=== PATIENT | male | born 1955 | race Two or more races ===

== ENCOUNTER 2024-03-04 08:56 | Outpatient (RCR) | payer MEDICARE, MEDICAID, SELFPAY ==
[2024-02-09 12:14] LABS: Basophils % (Auto) 1 % (0-2.5); Eosinophils # (Auto) 0.1 Thou/mm3 (0.0-0.5); Eosinophils % (Auto) 2 % (0-10); Hematocrit 32.3 % (41.0-53.0); Hemoglobin 11.4 g/dL (13.5-16.0); Immature Granulocytes % (Auto) 0 % (0-0); Immature Granulocytes Auto 0.01 Thou/mm3 (0.00-0.00); Lymphocytes # (Auto) 1.1 Thou/mm3 (1.0-4.8); Lymphocytes % (Auto) 31 % (10-50); Mean Corpuscular HGB Conc 35.3 g/dl (31.0-37.0); Mean Corpuscular Hemoglobin 30.8 pg (25.0-35.0); Mean Corpuscular Volume 87 fL (80-100); Monocytes # (Auto) 0.4 Thou/mm3 (0.0-0.8); Monocytes % (Auto) 12 % (0-12); Neutrophils % (Auto) 54 % (37-80); Nucleated Red Blood Cell % 0 /100 WBC (0); Platelet Count 202 Thou/mm3 (140-440); RDW Standard Deviation 46.7 fL (35.1-43.9); White Blood Count 3.6 Thou/mm3 (3.8-10.6)
[2024-02-09 12:27] LABS: Carcinoembryonic Antigen 2.1 ng/mL (0.0-5.0)
[2024-02-09 12:37] LABS: Alanine Aminotransferase < 7 U/L (10-49); Albumin, Serum 4.4 gm/dL (3.4-4.8); Albumin/Globulin Ratio 1.6 (1.2-2.2); Alkaline Phosphatase 62 U/L (46-116); Anion Gap 7 (7-16); Aspartate Amino Transferase 17 U/L (0-34); BUN/Creatinine Ratio 17 Ratio (12-20); Bilirubin,Total 1.6 mg/dL (0.3-1.2); Blood Urea Nitrogen 10 mg/dL (9-23); Calcium 9.6 mg/dL (8.3-10.6); Calcium (Corrected) 9.6 mg/dL (8.5-10.1); Chloride 107 mMol/L (98-107); Creatinine (Component) 0.6 mg/dL (0.6-1.3); Globulin 2.7 gm/dL (2.3-3.5); Glucose 143 mg/dL (74-106); Osmolality,Calculated 278 (275-295); Potassium 3.7 mMol/L (3.4-5.1); Sodium 139 mMol/L (136-145); Total Protein 7.1 gm/dL (5.7-8.2); eGFR > 60 See Note
[2024-02-20 16:33] LABS: Basophils % (Auto) 1 % (0-2.5); Eosinophils # (Auto) 0.1 Thou/mm3 (0.0-0.5); Eosinophils % (Auto) 1 % (0-10); Hematocrit 30.6 % (41.0-53.0); Immature Granulocytes % (Auto) 0 % (0-0); Immature Granulocytes Auto 0.02 Thou/mm3 (0.00-0.00); Lymphocytes # (Auto) 1.3 Thou/mm3 (1.0-4.8); Lymphocytes % (Auto) 23 % (10-50); Mean Corpuscular HGB Conc 35.9 g/dl (31.0-37.0); Mean Corpuscular Volume 86 fL (80-100); Monocytes # (Auto) 0.5 Thou/mm3 (0.0-0.8); Monocytes % (Auto) 9 % (0-12); Neutrophils # (Auto) 3.7 Thou/mm3 (1.8-7.7); Neutrophils % (Auto) 66 % (37-80); Nucleated Red Blood Cell % 0 /100 WBC (0); Platelet Count 177 Thou/mm3 (140-440); RDW Standard Deviation 48.5 fL (35.1-43.9); Red Blood Count 3.55 Miln/mm3 (4.50-5.90); White Blood Count 5.5 Thou/mm3 (3.8-10.6)
[2024-02-20 17:15] LABS: Carcinoembryonic Antigen 2.1 ng/mL (0.0-5.0)
[2024-02-20 17:38] LABS: Alanine Aminotransferase 10 U/L (10-49); Albumin/Globulin Ratio 1.5 (1.2-2.2); Alkaline Phosphatase 58 U/L (46-116); Anion Gap 8 (7-16); Aspartate Amino Transferase < 8 U/L (0-34); BUN/Creatinine Ratio 20 Ratio (12-20); Blood Urea Nitrogen 14 mg/dL (9-23); Calcium 9.2 mg/dL (8.3-10.6); Calcium (Corrected) 9.2 mg/dL (8.5-10.1); Chloride 104 mMol/L (98-107); Creatinine (Component) 0.7 mg/dL (0.6-1.3); Globulin 2.7 gm/dL (2.3-3.5); Glucose 219 mg/dL (74-106); Osmolality,Calculated 281 (275-295); Potassium 3.6 mMol/L (3.4-5.1); Sodium 137 mMol/L (136-145); Total Protein 6.7 gm/dL (5.7-8.2); eGFR > 60 See Note
== END 2024-03-09 23:59 | disposition home or self-care (01) ==
LOC: SCTC 08:56
PROVIDERS: PCP Family Medicine; Referring Provider Family Medicine; Visit Provider Internal Medicine Hematology & Oncology
DX: Z51.11 Encounter for antineoplastic chemotherapy (principal); C18.6 Malignant neoplasm of descending colon; E11.9 Type 2 diabetes mellitus without complications; K08.89 Other specified disorders of teeth and supporting structures; I95.9 Hypotension, unspecified; D64.9 Anemia, unspecified
CPT/HCPCS: 36591; 80053; 82378; 85025; 96360; 96361; 96366; 96367; 96409; 96411; 96416; 99212; A4216; J0640; J1642; J2405; J3490; J7030; J9190; G0463

== ENCOUNTER 2024-04-04 08:43 | Outpatient (RCR) | payer MEDICARE, MEDICAID, SELFPAY ==
[2024-03-12 16:15] LABS: Basophils % (Auto) 1 % (0-2.5); Eosinophils % (Auto) 1 % (0-10); Hematocrit 32.1 % (41.0-53.0); Hemoglobin 11.5 g/dL (13.5-16.0); Immature Granulocytes % (Auto) 0 % (0-0); Immature Granulocytes Auto 0.01 Thou/mm3 (0.00-0.00); Lymphocytes # (Auto) 1.1 Thou/mm3 (1.0-4.8); Lymphocytes % (Auto) 26 % (10-50); Mean Corpuscular HGB Conc 35.8 g/dl (31.0-37.0); Mean Corpuscular Hemoglobin 31.4 pg (25.0-35.0); Mean Corpuscular Volume 88 fL (80-100); Monocytes # (Auto) 0.4 Thou/mm3 (0.0-0.8); Monocytes % (Auto) 9 % (0-12); Neutrophils # (Auto) 2.7 Thou/mm3 (1.8-7.7); Neutrophils % (Auto) 64 % (37-80); Nucleated Red Blood Cell % 0 /100 WBC (0); Platelet Count 153 Thou/mm3 (140-440); RDW Standard Deviation 47.7 fL (35.1-43.9); Red Blood Count 3.66 Miln/mm3 (4.50-5.90); White Blood Count 4.3 Thou/mm3 (3.8-10.6)
[2024-03-12 16:42] LABS: Carcinoembryonic Antigen 2.2 ng/mL (0.0-5.0)
[2024-03-12 16:44] LABS: Folate > 24.00 ng/mL (>5.38); Vitamin B12 638 pg/mL (211-911)
[2024-03-12 16:51] LABS: Alanine Aminotransferase < 7 U/L (10-49); Albumin, Serum 4.1 gm/dL (3.4-4.8); Albumin/Globulin Ratio 1.6 (1.2-2.2); Alkaline Phosphatase 56 U/L (46-116); Anion Gap 8 (7-16); Aspartate Amino Transferase 16 U/L (0-34); BUN/Creatinine Ratio 30 Ratio (12-20); Bilirubin,Total 1.7 mg/dL (0.3-1.2); Blood Urea Nitrogen 18 mg/dL (9-23); Calcium 9.1 mg/dL (8.3-10.6); Calcium (Corrected) 9.1 mg/dL (8.5-10.1); Carbon Dioxide 25.9 mMol/L (20.0-31.0); Chloride 105 mMol/L (98-107); Creatinine (Component) 0.6 mg/dL (0.6-1.3); Globulin 2.5 gm/dL (2.3-3.5); Glucose 205 mg/dL (74-106); Osmolality,Calculated 285 (275-295); Potassium 3.8 mMol/L (3.4-5.1); Sodium 139 mMol/L (136-145); Total Protein 6.6 gm/dL (5.7-8.2); eGFR > 60 See Note
[2024-03-12 19:37] LABS: Ferritin 70 ng/mL (10.5-307.3); Total Iron Binding Capacity 282 mcg/dL (250-425)
[2024-03-12 19:46] LABS: Iron 144 mcg/dL (65-175); Percent Iron Saturation 51 % (20-55); Unsaturated Iron Binding 138 (225-295)
[2024-03-18 16:31] LABS: Basophils # (Auto) 0.1 Thou/mm3 (0.0-0.2); Basophils % (Auto) 1 % (0-2.5); Eosinophils # (Auto) 0.1 Thou/mm3 (0.0-0.5); Eosinophils % (Auto) 1 % (0-10); Hematocrit 32.6 % (41.0-53.0); Hemoglobin 11.8 g/dL (13.5-16.0); Immature Granulocytes % (Auto) 0 % (0-0); Immature Granulocytes Auto 0.02 Thou/mm3 (0.00-0.00); Lymphocytes # (Auto) 1.3 Thou/mm3 (1.0-4.8); Lymphocytes % (Auto) 22 % (10-50); Mean Corpuscular HGB Conc 36.2 g/dl (31.0-37.0); Mean Corpuscular Hemoglobin 31.4 pg (25.0-35.0); Mean Corpuscular Volume 87 fL (80-100); Monocytes # (Auto) 0.5 Thou/mm3 (0.0-0.8); Monocytes % (Auto) 8 % (0-12); Neutrophils % (Auto) 68 % (37-80); Nucleated Red Blood Cell % 0 /100 WBC (0); Platelet Count 164 Thou/mm3 (140-440); RDW Standard Deviation 46.9 fL (35.1-43.9); Red Blood Count 3.76 Miln/mm3 (4.50-5.90); White Blood Count 5.9 Thou/mm3 (3.8-10.6)
[2024-03-18 16:50] LABS: Alanine Aminotransferase 13 U/L (10-49); Albumin, Serum 4.4 gm/dL (3.4-4.8); Albumin/Globulin Ratio 1.8 (1.2-2.2); Alkaline Phosphatase 64 U/L (46-116); Anion Gap 8 (7-16); Aspartate Amino Transferase 15 U/L (0-34); BUN/Creatinine Ratio 20 Ratio (12-20); Bilirubin,Total 1.3 mg/dL (0.3-1.2); Blood Urea Nitrogen 18 mg/dL (9-23); Calcium 9.4 mg/dL (8.3-10.6); Calcium (Corrected) 9.4 mg/dL (8.5-10.1); Carbon Dioxide 27.1 mMol/L (20.0-31.0); Chloride 104 mMol/L (98-107); Creatinine (Component) 0.9 mg/dL (0.6-1.3); Globulin 2.5 gm/dL (2.3-3.5); Glucose 127 mg/dL (74-106); Osmolality,Calculated 281 (275-295); Potassium 3.9 mMol/L (3.4-5.1); Sodium 139 mMol/L (136-145); Total Protein 6.9 gm/dL (5.7-8.2); eGFR > 60 See Note
[2024-03-19 09:14] LABS: Carcinoembryonic Antigen 2.2 ng/mL (0.0-5.0)
[2024-04-01 13:03] LABS: Basophils % (Auto) 0 % (0-2.5); Eosinophils # (Auto) 0.1 Thou/mm3 (0.0-0.5); Eosinophils % (Auto) 1 % (0-10); Hematocrit 31.3 % (41.0-53.0); Hemoglobin 11.2 g/dL (13.5-16.0); Immature Granulocytes % (Auto) 0 % (0-0); Immature Granulocytes Auto 0.01 Thou/mm3 (0.00-0.00); Lymphocytes # (Auto) 1.1 Thou/mm3 (1.0-4.8); Lymphocytes % (Auto) 25 % (10-50); Mean Corpuscular HGB Conc 35.8 g/dl (31.0-37.0); Mean Corpuscular Hemoglobin 31.5 pg (25.0-35.0); Mean Corpuscular Volume 88 fL (80-100); Monocytes # (Auto) 0.4 Thou/mm3 (0.0-0.8); Monocytes % (Auto) 9 % (0-12); Neutrophils # (Auto) 2.9 Thou/mm3 (1.8-7.7); Neutrophils % (Auto) 64 % (37-80); Nucleated Red Blood Cell % 0 /100 WBC (0); Platelet Count 188 Thou/mm3 (140-440); RDW Standard Deviation 48.1 fL (35.1-43.9); Red Blood Count 3.56 Miln/mm3 (4.50-5.90); White Blood Count 4.5 Thou/mm3 (3.8-10.6)
[2024-04-01 13:18] LABS: Carcinoembryonic Antigen 2.2 ng/mL (0.0-5.0)
[2024-04-01 13:28] LABS: Alanine Aminotransferase < 7 U/L (10-49); Albumin, Serum 4.2 gm/dL (3.4-4.8); Albumin/Globulin Ratio 1.7 (1.2-2.2); Alkaline Phosphatase 64 U/L (46-116); Anion Gap 8 (7-16); Aspartate Amino Transferase 12 U/L (0-34); BUN/Creatinine Ratio 16 Ratio (12-20); Bilirubin,Total 1.3 mg/dL (0.3-1.2); Blood Urea Nitrogen 11 mg/dL (9-23); Calcium 9.1 mg/dL (8.3-10.6); Calcium (Corrected) 9.1 mg/dL (8.5-10.1); Carbon Dioxide 26.5 mMol/L (20.0-31.0); Chloride 105 mMol/L (98-107); Creatinine (Component) 0.7 mg/dL (0.6-1.3); Globulin 2.5 gm/dL (2.3-3.5); Glucose 221 mg/dL (74-106); Osmolality,Calculated 283 (275-295); Potassium 3.8 mMol/L (3.4-5.1); Sodium 139 mMol/L (136-145); Total Protein 6.7 gm/dL (5.7-8.2); eGFR > 60 See Note
== END 2024-04-09 23:59 | disposition home or self-care (01) ==
LOC: SCTC 08:43
PROVIDERS: PCP Family Medicine; Referring Provider Family Medicine; Visit Provider Internal Medicine Hematology & Oncology
DX: Z51.11 Encounter for antineoplastic chemotherapy (principal); C18.6 Malignant neoplasm of descending colon; K08.89 Other specified disorders of teeth and supporting structures; I95.9 Hypotension, unspecified; E11.9 Type 2 diabetes mellitus without complications; D64.9 Anemia, unspecified; Z79.84 Long term (current) use of oral hypoglycemic drugs
CPT/HCPCS: 36591; 80053; 82378; 82607; 82728; 82746; 83540; 83550; 85025; 96366; 96367; 96409; 96411; 96416; A4216; J0640; J1642; J2405; J9190

== ENCOUNTER 2024-05-06 13:54 | Outpatient (RCR) | payer MEDICARE, MEDICAID, SELFPAY ==
[2024-04-15 08:55] LABS: Basophils % (Auto) 1 % (0-2.5); Eosinophils # (Auto) 0.1 Thou/mm3 (0.0-0.5); Eosinophils % (Auto) 2 % (0-10); Hematocrit 28.9 % (41.0-53.0); Hemoglobin 10.5 g/dL (13.5-16.0); Immature Granulocytes % (Auto) 1 % (0-0); Immature Granulocytes Auto 0.02 Thou/mm3 (0.00-0.00); Lymphocytes # (Auto) 1.1 Thou/mm3 (1.0-4.8); Lymphocytes % (Auto) 28 % (10-50); Mean Corpuscular HGB Conc 36.3 g/dl (31.0-37.0); Mean Corpuscular Hemoglobin 31.3 pg (25.0-35.0); Mean Corpuscular Volume 86 fL (80-100); Monocytes # (Auto) 0.4 Thou/mm3 (0.0-0.8); Monocytes % (Auto) 10 % (0-12); Neutrophils # (Auto) 2.3 Thou/mm3 (1.8-7.7); Neutrophils % (Auto) 59 % (37-80); Nucleated Red Blood Cell % 0 /100 WBC (0); Platelet Count 182 Thou/mm3 (140-440); RDW Standard Deviation 47.9 fL (35.1-43.9); Red Blood Count 3.35 Miln/mm3 (4.50-5.90); White Blood Count 3.9 Thou/mm3 (3.8-10.6)
[2024-04-15 09:12] LABS: Carcinoembryonic Antigen 2.5 ng/mL (0.0-5.0)
[2024-04-15 09:20] LABS: Alanine Aminotransferase < 7 U/L (10-49); Albumin, Serum 4.2 gm/dL (3.4-4.8); Albumin/Globulin Ratio 1.5 (1.2-2.2); Alkaline Phosphatase 63 U/L (46-116); Anion Gap 9 (7-16); Aspartate Amino Transferase 13 U/L (0-34); BUN/Creatinine Ratio 18 Ratio (12-20); Bilirubin,Total 1.2 mg/dL (0.3-1.2); Blood Urea Nitrogen 14 mg/dL (9-23); Calcium 9.4 mg/dL (8.3-10.6); Calcium (Corrected) 9.4 mg/dL (8.5-10.1); Chloride 104 mMol/L (98-107); Creatinine (Component) 0.8 mg/dL (0.6-1.3); Globulin 2.8 gm/dL (2.3-3.5); Glucose 250 mg/dL (74-106); Osmolality,Calculated 284 (275-295); Sodium 138 mMol/L (136-145); eGFR > 60 See Note
[2024-04-29 16:22] LABS: Basophils % (Auto) 1 % (0-2.5); Eosinophils # (Auto) 0.1 Thou/mm3 (0.0-0.5); Eosinophils % (Auto) 1 % (0-10); Hematocrit 30.9 % (41.0-53.0); Hemoglobin 10.8 g/dL (13.5-16.0); Immature Granulocytes % (Auto) 0 % (0-0); Immature Granulocytes Auto 0.01 Thou/mm3 (0.00-0.00); Lymphocytes # (Auto) 1.3 Thou/mm3 (1.0-4.8); Lymphocytes % (Auto) 26 % (10-50); Mean Corpuscular Hemoglobin 31.1 pg (25.0-35.0); Mean Corpuscular Volume 89 fL (80-100); Monocytes # (Auto) 0.4 Thou/mm3 (0.0-0.8); Monocytes % (Auto) 8 % (0-12); Neutrophils # (Auto) 3.3 Thou/mm3 (1.8-7.7); Neutrophils % (Auto) 64 % (37-80); Nucleated Red Blood Cell % 0 /100 WBC (0); Platelet Count 184 Thou/mm3 (140-440); RDW Standard Deviation 50.4 fL (35.1-43.9); Red Blood Count 3.47 Miln/mm3 (4.50-5.90); White Blood Count 5.2 Thou/mm3 (3.8-10.6)
[2024-04-29 16:39] LABS: Alanine Aminotransferase < 7 U/L (10-49); Albumin, Serum 4.1 gm/dL (3.4-4.8); Albumin/Globulin Ratio 1.5 (1.2-2.2); Alkaline Phosphatase 60 U/L (46-116); Anion Gap 8 (7-16); Aspartate Amino Transferase 15 U/L (0-34); BUN/Creatinine Ratio 31 Ratio (12-20); Bilirubin,Total 1.1 mg/dL (0.3-1.2); Blood Urea Nitrogen 22 mg/dL (9-23); Calcium 9.3 mg/dL (8.3-10.6); Calcium (Corrected) 9.3 mg/dL (8.5-10.1); Carbon Dioxide 25.2 mMol/L (20.0-31.0); Chloride 109 mMol/L (98-107); Creatinine (Component) 0.7 mg/dL (0.6-1.3); Globulin 2.7 gm/dL (2.3-3.5); Glucose 233 mg/dL (74-106); Osmolality,Calculated 293 (275-295); Potassium 4.1 mMol/L (3.4-5.1); Sodium 142 mMol/L (136-145); Total Protein 6.8 gm/dL (5.7-8.2); eGFR > 60 See Note
[2024-04-29 16:41] LABS: Carcinoembryonic Antigen 2.6 ng/mL (0.0-5.0)
--- NOTE | 2024-05-06 15:01 | CTCFLWUP_ITS ---
Patient: MERRITT YA : 1955 Page 2 of 2 FOLLOW UP NOTE DATE OF SERVICE: 05/06/2024 NAME: MERRITT YA ACCOUNT: [id number] : 1955 AGE: 69 INTERVAL HISTORY: Patient is on adjuvant chemotherapy. Patient is doing well. He says he has gained about 8 to 10 rolan nds since starting chemotherapy. He has no side effects. Denies any nausea vomiting and neuropathy. He gets worried because of the elevated bilirubin. He is on Jardiance for his diabetes. 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 Patient had complete bowel obstruction prior to the surgery due to malignancy in the descending colon. Currently on adjuvant 5-FU and leucovorin chemotherapy (12/06/2023??) Hypotension currently on ProAmat ine. History of glaucoma. 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 Patient had complete bowel obstruction prior to the surgery due to malignancy in the descending colon. TREATMENT HISTORY: Care?Plan Start?Date Cycle Day Intent simplified?Bi?wkly?infusional?5?FU?and?Leucovorin 12/06/2023 1 14 Curative?(adjuvant) HISTORY OF PRESENT ILLNESS: Merritt Ya is a 69-year-old ENG speaking male with history of glaucoma, type 2 diabetes, c onstipation of 1 year duration as well as 50 pound weight loss has the following oncology history. 10/11/2023: Mr. Ya was seen in the [facility] emergency room becaus e of hypotension and anemia. EKG showed left bundle branch block. CEA 3.3. 10/11/2023: CT scan of the chest abdomen and pelvis with IV contrast was obtained 10/12/2023: Mr. Ya had a colonoscopy 10/14/2023: Mr. Ya had laparoscopic cholecystectomy, exploratory laparotomy and resection of the d escending colon and anastomosis between the transverse colon to the sigmoid colon and resection of th e small bowel and primary anastomosis. 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 Tobacco Use:?Smoked cigars socially off/on x 2 yrs - Quit 40yrs ago ETOH Use:?Quit Apr 2023- Drank 3- 24 oz beers/daily for 40yrs Drug?Note:?Denies Social History Note:?Lives with and children MEDICATIONS: 1. ferrous sulfate - 325 mg (65 mg iron) 1 tab Daily 2. Jardiance - 50 mg Daily 3. Na - 1 Daily 4. ProAmatine - 10 mg 0.5 tab Twice a Day Medications Last Reconciled by Rena Egan MA on 05/06/2024 ALLERGIES: No Known Allergies; No Known Drug Allergies REVIEW OF SYSTEMS: A complete 14-point review of systems was performed and is negative except as noted in interval histo ry. PHYSICAL EXAMINATION: VITAL SIGNS: Temperature?98.5, B/P?102/68, Oxygen?Saturation?100% Weight?126?lbs (Change?since? 5:?-2.2?lbs) PAIN: 0 - No pain ECOG Performance Status: 0 - Asymptomatic and fully active Alert and oriented x4 CHEST: Clear to auscultation. No wheezes or rales audible. CARDIAC: Rhythm regular, no murmurs or gallops present. ABDOMEN: Soft. No hepatomegaly. No splenomegaly. EXTREMITIES: No pedal edema or cyanosis. LABORATORY DATA: I have personally reviewed and interpreted each of the patient?s relevant lab tests, abnormal finding s are below: Date 04/29/24 ??WHITE?BLOOD?COUNT?(Thou/mm3) 5.2 ??RED?BLOOD?COUNT?(Miln/mm3) 3.47?L ??HEMOGLOBIN?(gm/dl) 10.8?L ??HEMATOCRIT?(%) 30.9?L ??PLATELET?COUNT?(Thou/mm3) 184 ??NEUTROPHILS?%,?AUTO?(%) 64 ??LYMPH?%,?AUTO?(%) 26 ??NEUTROPHILS,?AUTO?(Thou/mm3) 3.3 ASSESSMENT/PLAN: Stage IIa (T3 N0, M0), MMR proficient, well-differentiated adenocarcinoma of the descending colon wi th perineural invasion. Patient had complete bowel obstruction prior to the surgery due to malignanc y in the descending colon. Currently on adjuvant chemotherapy with 5-FU and leucovorin started on 09/09 and will cont for total 6 months Currently on cycle 5 PET/CT scan (11/23/2023) negative for met astasis. Cont therapy Cbc,cmp,cea Patient have completed 8 cycles and doing well Will continue chemotherapy for total 12 cycles as planned PET CT scan after that Reviewed labs and are stable #2 transaminitis Likely from Jardiance and chemotherapy Advised to discuss with primary care Patient will benefit from changing Jardiance to insulin and will have better control of glucose as we ll as well preventive transaminitis Continue chemotherapy for now with close monitoring of LFTs #3 Right premolar tooth pain a few days duration. Patient already completed dental workup and is now stable #4,Hypotension currently on ProAmatine. Echocardiogram done on 10/12/2023 showed normal ejecti on fraction of 55 to 60%. Pcp f/u #5 history of glaucoma. Follow with pcp #6 history of type 2 diabetes f/u with pcp. Advised to change treatment from Jardiance to insulin #7 anemia Likely from chemotherapy bone marrow suppression Will do nutritional work up including b12, folate, iron studies and all his stable Reviewed patient's labs CBC CMP CEA and trends along with old imaging CBC CMP PET CT scan to see any recurrence CEA RETURN TO CLINIC: 6 weeks BILLING AND COMPLIANCE: I reviewed external records from providers outside my specialty as summarized above. I spent a total of 50 minutes on this patient?s care on the day of their visit excluding time spent related to any bi lled procedures. This time includes time spent with the patient as well as time spent documenting in the medical record, reviewing patients records and tests, obtaining history, placing orders, communi cating with other healthcare professionals, counseling the patient, family or caregiver, and/or care coordination for the diagnoses above. Electronically Signed by: Dionte Chavez MD T: 2:58 PM CC: PCP: Referring: Shelley More This document was completed utilizing speech recognition software. Grammatical errors, random word in sertions, pronoun errors, and incomplete sentences are an occasional consequence of this system due t o software limitations, ambient noise, and hardware issues. Any formal questions or concerns about th e content, text or information contained within the body of this dictation should be directly address ed to the provider for clarification.
== END 2024-05-10 23:59 | disposition home or self-care (01) ==
LOC: SCTC 13:54
PROVIDERS: PCP Family Medicine; Referring Provider Family Medicine; Visit Provider Internal Medicine Hematology & Oncology
DX: Z51.11 Encounter for antineoplastic chemotherapy (principal); C18.6 Malignant neoplasm of descending colon; Z90.49 Acquired absence of other specified parts of digestive tract; R74.01 Elevation of levels of liver transaminase levels; I95.9 Hypotension, unspecified; E11.9 Type 2 diabetes mellitus without complications; D64.9 Anemia, unspecified
CPT/HCPCS: 36591; 80053; 82378; 85025; 96366; 96367; 96409; 96411; 96416; 99212; A4216; J0640; J1642; J2405; J7040; J7050; J9190; G0463

== ENCOUNTER 2024-06-27 10:08 | Outpatient (RCR) | payer MEDICARE, SELFPAY ==
[2024-06-10 09:40] LABS: Basophils % (Auto) 1 % (0-2.5); Eosinophils # (Auto) 0.1 Thou/mm3 (0.0-0.5); Eosinophils % (Auto) 1 % (0-10); Immature Granulocytes % (Auto) 0 % (0-0); Immature Granulocytes Auto 0.01 Thou/mm3 (0.00-0.00); Lymphocytes % (Auto) 20 % (10-50); Mean Corpuscular HGB Conc 35.5 g/dl (31.0-37.0); Mean Corpuscular Hemoglobin 31.9 pg (25.0-35.0); Mean Corpuscular Volume 90 fL (80-100); Monocytes # (Auto) 0.5 Thou/mm3 (0.0-0.8); Monocytes % (Auto) 9 % (0-12); Neutrophils # (Auto) 3.4 Thou/mm3 (1.8-7.7); Neutrophils % (Auto) 69 % (37-80); Nucleated Red Blood Cell % 0 /100 WBC (0); Platelet Count 155 Thou/mm3 (140-440); RDW Standard Deviation 47.2 fL (35.1-43.9); Red Blood Count 3.45 Miln/mm3 (4.50-5.90)
[2024-06-10 10:08] LABS: Alanine Aminotransferase 12 U/L (10-49); Albumin, Serum 4.3 gm/dL (3.4-4.8); Albumin/Globulin Ratio 1.7 (1.2-2.2); Alkaline Phosphatase 64 U/L (46-116); Anion Gap 11 (7-16); Aspartate Amino Transferase 17 U/L (0-34); BUN/Creatinine Ratio 27 Ratio (12-20); Bilirubin,Total 1.2 mg/dL (0.3-1.2); Blood Urea Nitrogen 19 mg/dL (9-23); Calcium 9.4 mg/dL (8.3-10.6); Calcium (Corrected) 9.4 mg/dL (8.5-10.1); Carbon Dioxide 23.3 mMol/L (20.0-31.0); Chloride 107 mMol/L (98-107); Creatinine (Component) 0.7 mg/dL (0.6-1.3); Globulin 2.6 gm/dL (2.3-3.5); Glucose 232 mg/dL (74-106); Osmolality,Calculated 290 (275-295); Potassium 3.7 mMol/L (3.4-5.1); Sodium 141 mMol/L (136-145); Total Protein 6.9 gm/dL (5.7-8.2); eGFR > 60 See Note
[2024-06-10 10:16] LABS: Carcinoembryonic Antigen 2.4 ng/mL (0.0-5.0)
[2024-06-24 09:29] LABS: Basophils % (Auto) 1 % (0-2.5); Eosinophils # (Auto) 0.1 Thou/mm3 (0.0-0.5); Eosinophils % (Auto) 1 % (0-10); Hemoglobin 11.5 g/dL (13.5-16.0); Immature Granulocytes % (Auto) 0 % (0-0); Immature Granulocytes Auto 0.01 Thou/mm3 (0.00-0.00); Lymphocytes # (Auto) 1.2 Thou/mm3 (1.0-4.8); Lymphocytes % (Auto) 32 % (10-50); Mean Corpuscular HGB Conc 34.8 g/dl (31.0-37.0); Mean Corpuscular Hemoglobin 31.2 pg (25.0-35.0); Mean Corpuscular Volume 89 fL (80-100); Monocytes # (Auto) 0.3 Thou/mm3 (0.0-0.8); Monocytes % (Auto) 9 % (0-12); Neutrophils # (Auto) 2.2 Thou/mm3 (1.8-7.7); Neutrophils % (Auto) 57 % (37-80); Nucleated Red Blood Cell % 0 /100 WBC (0); Platelet Count 163 Thou/mm3 (140-440); RDW Standard Deviation 47.9 fL (35.1-43.9); Red Blood Count 3.69 Miln/mm3 (4.50-5.90); White Blood Count 3.9 Thou/mm3 (3.8-10.6)
[2024-06-24 09:47] LABS: Alanine Aminotransferase 12 U/L (10-49); Albumin/Globulin Ratio 1.4 (1.2-2.2); Alkaline Phosphatase 64 U/L (46-116); Anion Gap 10 (7-16); Aspartate Amino Transferase 15 U/L (0-34); BUN/Creatinine Ratio 23 Ratio (12-20); Blood Urea Nitrogen 16 mg/dL (9-23); Calcium 9.5 mg/dL (8.3-10.6); Calcium (Corrected) 9.5 mg/dL (8.5-10.1); Carbon Dioxide 23.8 mMol/L (20.0-31.0); Chloride 109 mMol/L (98-107); Creatinine (Component) 0.7 mg/dL (0.6-1.3); Globulin 2.9 gm/dL (2.3-3.5); Glucose 250 mg/dL (74-106); Osmolality,Calculated 294 (275-295); Potassium 3.9 mMol/L (3.4-5.1); Sodium 143 mMol/L (136-145); Total Protein 6.9 gm/dL (5.7-8.2); eGFR > 60 See Note
[2024-06-24 09:52] LABS: Carcinoembryonic Antigen 2.4 ng/mL (0.0-5.0)
== END 2024-07-08 23:59 | disposition home or self-care (01) ==
LOC: SCTC 10:08
PROVIDERS: PCP Family Medicine; Referring Provider Family Medicine; Visit Provider Internal Medicine Hematology & Oncology
DX: Z51.11 Encounter for antineoplastic chemotherapy (principal); C18.6 Malignant neoplasm of descending colon; R74.01 Elevation of levels of liver transaminase levels; E11.9 Type 2 diabetes mellitus without complications; Z79.84 Long term (current) use of oral hypoglycemic drugs; Z90.49 Acquired absence of other specified parts of digestive tract
CPT/HCPCS: 36591; 80053; 82378; 85025; 96365; 96366; 96367; 96416; A4216; J0640; J1642; J2405; J7050; J9190

== ENCOUNTER → 2024-07-09 | Outpatient (CLI) | payer MEDICARE, SELFPAY ==
--- NOTE | 2024-07-09 12:30 | XR_ITS ---
EXAMINATION: PET/CT FUSION SKULL TO THIGH EXAM DATE AND TIME: July 09, 2024 at 1317 hours Comparison PET/CT scan November 23, 2023 CT brain scan November 02, 2023, CT chest abdomen pelvis October 11, 2023 INDICATIONS: Diagnosis malignant neoplasm of the colon restaging CTDI:vol (mGy) 3.70 DLP: (mGycm) 338 PROCEDURE: 16 mCi FDG was administered intravenously To allow for distribution and uptake of radiotracer, the patient was allowed to rest quietly in a shielded room. Imaging was performed on an integrated 16-slice PET/CT scanner, with scanning from the skull base to the mid thigh. Serum blood glucose at the time of the injection was measured 105 mg/dL. CT scanning was performed without oral or intravenous contrast material. FINDINGS: Head and Neck: There is no gayle hypermetabolism in the neck. The visualized portions of the brain are normal in appearance on CT. Chest: There is no gayle hypermetabolism in the chest. There are no pulmonary nodules. Abdomen and Pelvis: Interval 21 x 22 mm hypermetabolic focus in the right colon, axial image 151, coronal image 28, sagittal image 26. Musculoskeletal: Marrow uptake is within normal range. IMPRESSION: Interval 21 x 22 x 20 mm hypermetabolic focus in the right colon as above, recommend colonoscopy to exclude malignant neoplasm of the colon at this level
== END | disposition home or self-care (01) ==
PROVIDERS: Referring Provider Internal Medicine Hematology & Oncology; Visit Provider Internal Medicine Hematology & Oncology
DX: C18.6 Malignant neoplasm of descending colon (principal)
CPT/HCPCS: 78815; A9552

== ENCOUNTER → 2024-07-12 | Outpatient (CLI) | payer MEDICARE, SELFPAY ==
[2024-07-12 09:13] LABS: Misc Send Out* See Sep Rpt
== END | disposition home or self-care (01) ==
PROVIDERS: PCP Family Medicine; Referring Provider Internal Medicine Hematology & Oncology; Visit Provider Internal Medicine Hematology & Oncology
DX: C18.6 Malignant neoplasm of descending colon (principal)

== ENCOUNTER 2024-07-15 10:43 | Outpatient (RCR) | payer MEDICARE, SELFPAY ==
--- NOTE | 2024-07-15 13:19 | CTCFLWUP_ITS ---
Patient: MERRITT ANGLIN : 1955 Page 2 of 2 FOLLOW UP NOTE DATE OF SERVICE: 07/15/2024 NAME: MERRITT ANGLIN ACCOUNT: [id number] : 1955 AGE: 69 INTERVAL HISTORY: Patient completed chemotherapy . last treatment was on 06/25/2024 ONCOLOGY HISTORY: DIAGNOSIS: Malignant neoplasm of descending colon [ICD10] C18.6 Stage IIa (T3 N0, M0), MMR proficient, well-differentiated adenocarcinoma of the descending colon with perineural invasion. Patient had complete bowel obstruction prior to the surgery due to malignancy in the descending colon. Currently on adjuvant 5-FU and leucovorin chemotherapy (12/06/2023??) Hypotension currently on ProAmatine. History of glaucoma. 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 Patient had complete bowel obstruction prior to the surgery due to malignancy in the descending colon. TREATMENT HISTORY: Care?Plan Start?Date Cycle Day Intent simplified?Bi?wkly?infusional?5?FU?and?Leucovorin 12/06/2023 1 14 Curative?(adjuvant) last treatment was on 06/25/2024 HISTORY OF PRESENT ILLNESS: Merritt Anglin is a 69-year-old ENG speaking male with history of glaucoma, type 2 diabetes, constipation of 1 year duration as well as 50 pound weight loss has the following oncology history. 10/11/2023: Mr. Anglin was seen in the [facility] emergency room because of hypotension and anemia. EKG showed left bundle branch block. CEA 3.3. 10/11/2023: CT scan of the chest abdomen and pelvis with IV contrast was obtained 10/12/2023: Mr. Anglin had a colonoscopy 10/14/2023: Mr. Anglin had laparoscopic cholecystectomy, exploratory laparotomy and resection of the descending colon and anastomosis between the transverse colon to the sigmoid colon and resection of the small bowel and primary anastomosis. 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 Tobacco Use:?Smoked cigars socially off/on x 2 yrs - Quit 40yrs ago ETOH Use:?Quit Apr 2023- Drank 3- 24 oz beers/daily for 40yrs Drug?Note:?Denies Social History Note:?Lives with and children MEDICATIONS: 1. ferrous sulfate - 325 mg (65 mg iron) 1 tab Daily 2. Jardiance - 50 mg Daily 3. Na - 1 Daily 4. ProAmatine - 10 mg 0.5 tab Twice a Day Medications Last Reconciled by Rena Egan MA on 07/15/2024 ALLERGIES: No Known Allergies; No Known Drug Allergies REVIEW OF SYSTEMS: A complete 14-point review of systems was performed and is negative except as noted in interval history. PHYSICAL EXAMINATION: VITAL SIGNS: Temperature?96.5, B/P?107/70, Oxygen?Saturation?99% Weight?126?lbs (Change?since?06/27/24:?-6.2?lbs) PAIN: 0 - No pain Alert and oriented x4 CHEST: Clear to auscultation. No wheezes or rales audible. CARDIAC: Rhythm regular, no murmurs or gallops present. ABDOMEN: Soft. No hepatomegaly. No splenomegaly. EXTREMITIES: No pedal edema or cyanosis. LABORATORY DATA: I have personally reviewed and interpreted each of the patient?s relevant lab tests, abnormal findings are below: Date 06/10/24 06/24/24 ??WHITE?BLOOD?COUNT?(Thou/mm3) 5.0 3.9 ??RED?BLOOD?COUNT?(Miln/mm3) 3.45?L 3.69?L ??HEMOGLOBIN?(gm/dl) 11.0?L 11.5?L ??HEMATOCRIT?(%) 31.0?L 33.0?L ??PLATELET?COUNT?(Thou/mm3) 155 163 ??NEUTROPHILS?%,?AUTO?(%) 69 57 ??LYMPH?%,?AUTO?(%) 20 32 ??NEUTROPHILS,?AUTO?(Thou/mm3) 3.4 2.2 ??GLUCOSE,RANDOM?(mg/dL) ? 250?H ??BLOOD?UREA?NITROGEN?(mg/dL) ? 16 ??CREATININE?(mg/dL) ? 0.70 ??SODIUM?(mmol/L) ? 143 ??POTASSIUM?(mmol/L) ? 3.9 ??CHLORIDE?(mmol/L) ? 109?H ??CrCl?(CandG)?(ml/min) ? 87.77 ??AST/SGOT?(Unit/L) ? 15 ??ALT/SGPT?(Unit/L) ? 12 ??ALKALINE?PHOSPHATASE?(Unit/L) ? 64 ??BILIRUBIN,?TOTAL?(mg/dL) ? 1.0 ??PROTEIN?TOTAL?(gm/dl) ? 6.9 ??ALBUMIN,?SERUM?(gm/dl) ? 4.0 ??GLOBULIN?(gm/dl) ? 2.9 ??ALBUMIN/GLOBULIN?RATIO ? 1.4 ??CALCIUM,?SERUM?(mg/dL) ? 9.5 ??CALCIUM?SERUM?(CORRECTED)?(mg/dL) ? 9.5 ??CEA?(O*)?(ng/ml) ? 2.4 ASSESSMENT/PLAN: Stage IIa (T3 N0, M0), MMR proficient, well-differentiated adenocarcinoma of the descending colon with perineural invasion. Patient had complete bowel obstruction prior to the surgery due to malignancy in the descending colon. Patient completed 12 cycle sof treatment with 5 fu 07/09/2024 Pet scan is concerning for lesion in the colon . ORDERS: Order # Description [id number] Comprehensive Metabolic Panel - 12 + CBC with Auto Diff + [id number] CEA [id number] Follow Up 2 Months Referrel placed for colonoscopy radha ? RETURN TO CLINIC: 2 months BILLING AND COMPLIANCE: I reviewed external records from providers outside my specialty as summarized above. I spent a total of 50 minutes on this patient?s care on the day of their visit excluding time spent related to any billed procedures. This time includes time spent with the patient as well as time spent documenting in the medical record, reviewing patients records and tests, obtaining history, placing orders, communicating with other healthcare professionals, counseling the patient, family or caregiver, and/or care coordination for the diagnoses above. Electronically Signed by: Dionte Chavez MD T: 1:17 PM CC: PCP: Referring: Dionte Chavez This document was completed utilizing speech recognition software. Grammatical errors, random word insertions, pronoun errors, and incomplete sentences are an occasional consequence of this system due to software limitations, ambient noise, and hardware issues. Any formal questions or concerns about the content, text or information contained within the body of this dictation should be directly addressed to the provider for clarification.
== END 2024-08-07 23:59 | disposition home or self-care (01) ==
LOC: SCTC 10:43
PROVIDERS: PCP Family Medicine; Referring Provider Internal Medicine Hematology & Oncology; Visit Provider Internal Medicine Hematology & Oncology
DX: C18.6 Malignant neoplasm of descending colon (principal); K63.89 Other specified diseases of intestine; Z92.21 Personal history of antineoplastic chemotherapy
CPT/HCPCS: 99212; G0463

== ENCOUNTER 2024-09-16 10:13 | Outpatient (RCR) | payer MEDICARE, SELFPAY ==
[2024-09-13 11:46] LABS: Basophils # (Auto) 0.1 Thou/mm3 (0.0-0.2); Basophils % (Auto) 2 % (0-2.5); Eosinophils # (Auto) 0.1 Thou/mm3 (0.0-0.5); Eosinophils % (Auto) 2 % (0-10); Hematocrit 35.7 % (41.0-53.0); Hemoglobin 12.8 g/dL (13.5-16.0); Immature Granulocytes % (Auto) 0 % (0-0); Immature Granulocytes Auto 0.01 Thou/mm3 (0.00-0.00); Lymphocytes # (Auto) 1.2 Thou/mm3 (1.0-4.8); Lymphocytes % (Auto) 28 % (10-50); Mean Corpuscular HGB Conc 35.9 g/dl (31.0-37.0); Mean Corpuscular Hemoglobin 31.3 pg (25.0-35.0); Mean Corpuscular Volume 87 fL (80-100); Monocytes # (Auto) 0.4 Thou/mm3 (0.0-0.8); Monocytes % (Auto) 8 % (0-12); Neutrophils # (Auto) 2.6 Thou/mm3 (1.8-7.7); Neutrophils % (Auto) 60 % (37-80); Nucleated Red Blood Cell % 0 /100 WBC (0); Platelet Count 173 Thou/mm3 (140-440); RDW Standard Deviation 42.7 fL (35.1-43.9); Red Blood Count 4.09 Miln/mm3 (4.50-5.90); White Blood Count 4.4 Thou/mm3 (3.8-10.6)
[2024-09-13 12:03] LABS: Alanine Aminotransferase 9 U/L (10-49); Albumin, Serum 4.2 gm/dL (3.4-4.8); Albumin/Globulin Ratio 1.6 (1.2-2.2); Alkaline Phosphatase 80 U/L (46-116); Anion Gap 11 (7-16); Aspartate Amino Transferase 17 U/L (0-34); BUN/Creatinine Ratio 14 Ratio (12-20); Blood Urea Nitrogen 11 mg/dL (9-23); Calcium 9.5 mg/dL (8.3-10.6); Calcium (Corrected) 9.5 mg/dL (8.5-10.1); Carbon Dioxide 25.6 mMol/L (20.0-31.0); Chloride 103 mMol/L (98-107); Creatinine (Component) 0.8 mg/dL (0.6-1.3); Globulin 2.6 gm/dL (2.3-3.5); Glucose 183 mg/dL (74-106); Osmolality,Calculated 283 (275-295); Potassium 3.8 mMol/L (3.4-5.1); Sodium 140 mMol/L (136-145); Total Protein 6.8 gm/dL (5.7-8.2); eGFR > 60 See Note
[2024-09-13 12:06] LABS: Carcinoembryonic Antigen 2.2 ng/mL (0.0-5.0)
--- NOTE | 2024-09-22 22:29 | CTCFLWUP_ITS ---
Patient: MERRITT YA : 1955 Page 6 of 8 FOLLOW UP NOTE DATE OF SERVICE: 09/16/2024 NAME: MERRITT YA ACCOUNT: [id number] : 1955 AGE: 69 INTERVAL HISTORY: Subjective: Chief Complaint Follow-up for colon cancer treatment and recent tests History of Present Illness Mr. Felton Hernandez, a cancer survivor, presents for follow-up after completing cancer treatment on July 02, 2024. The patient is currently in the recovery phase, which is expected to last another 3 months. The patient's heart rate is reported to be slightly elevated, which may indicate dehydration. There are no specific complaints mentioned, but the patient is undergoing close monitoring due to his cancer history. A recent PET scan in July revealed a small area of hypermetabolic activity, prompting a scheduled colonoscopy for further evaluation. The patient's hemoglobin level is noted to be low at 12.8. Mr. Ya's blood pressure may increase as he gains weight, suggesting recent weight gain. His overall health status appears to be improving since completing cancer treatment, with a focus now on prevention and lifestyle modifications. The patient is advised to make dietary changes, including increasing vegetable intake and avoiding processed sweets. Objective: Vital Signs - Heart Rate: Elevated (exact value not provided) - Hemoglobin: 12.8 (units not specified) Laboratory, Imaging, and Diagnostic Test Results - Colon cancer test (08/04/2024): Negative for cancer - PET scan (July 2024): Small area of hypermetabolic activity detected - Hemoglobin: 12.8 g/dL (low) ONCOLOGY HISTORY:?[facility] Hx? 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 Patient had complete bowel obstruction prior to the surgery due to malignancy in the descending colon. Currently on adjuvant 5-FU and leucovorin chemotherapy (12/06/2023??) Hypotension currently on ProAmatine. History of glaucoma. 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 Patient had complete bowel obstruction prior to the surgery due to malignancy in the descending colon. TREATMENT HISTORY: Care?Plan Start?Date Cycle Day Intent simplified?Bi?wkly?infusional?5?FU?and?Leucovorin 12/06/2023 1 14 Curative?(adjuvant) Patient completed chemotherapy . last treatment was on 06/25/2024 HISTORY OF PRESENT ILLNESS: Merritt Ya is a 69-year-old ENG speaking male with history of glaucoma, type 2 diabetes, constipation of 1 year duration as well as 50 pound weight loss has the following oncology history. 10/11/2023: Mr. Ya was seen in the [facility] emergency room because of hypotension and anemia. EKG showed left bundle branch block. CEA 3.3. 10/11/2023: CT scan of the chest abdomen and pelvis with IV contrast was obtained 10/12/2023: Mr. Ya had a colonoscopy 10/14/2023: Mr. Ya had laparoscopic cholecystectomy, exploratory laparotomy and resection of the descending colon and anastomosis between the transverse colon to the sigmoid colon and resection of the small bowel and primary anastomosis. 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 Tobacco Use:?Smoked cigars socially off/on x 2 yrs - Quit 40yrs ago ETOH Use:?Quit Apr 2023- Drank 3- 24 oz beers/daily for 40yrs Drug?Note:?Denies Social History Note:?Lives with and children MEDICATIONS: 1. ferrous sulfate - 325 mg (65 mg iron) 1 tab Daily 2. Jardiance - 50 mg Daily?Palabra Meds? Medications Last Reconciled by Mabel Morales MA on 09/16/2024 ALLERGIES: No Known Allergies; No Known Drug Allergies REVIEW OF SYSTEMS: A complete 14-point review of systems was performed and is negative except as noted in interval history. PHYSICAL EXAMINATION:?[facility] PE? VITAL SIGNS: Temperature?99.6, B/P?116/68, Oxygen?Saturation?99% Weight?132?lbs (Change?since?09/13/24:?-0.8?lbs) PAIN: 0 - No pain ECOG Performance Status: 0 - Asymptomatic and fully active Alert and oriented x4 CHEST: Clear to auscultation. No wheezes or rales audible. CARDIAC: Rhythm regular, no murmurs or gallops present. ABDOMEN: Soft. No hepatomegaly. No splenomegaly. EXTREMITIES: No pedal edema or cyanosis. LABORATORY DATA: I have personally reviewed and interpreted each of the patient?s relevant lab tests, abnormal findings are below: Date 06/24/24 09/13/24 ??WHITE?BLOOD?COUNT?(Thou/mm3) ? 4.4 ??RED?BLOOD?COUNT?(Miln/mm3) ? 4.09?L ??HEMOGLOBIN?(gm/dl) ? 12.8?L ??HEMATOCRIT?(%) ? 35.7?L ??PLATELET?COUNT?(Thou/mm3) ? 173 ??NEUTROPHILS?%,?AUTO?(%) ? 60 ??LYMPH?%,?AUTO?(%) ? 28 ??NEUTROPHILS,?AUTO?(Thou/mm3) ? 2.6 ??GLUCOSE,RANDOM?(mg/dL) 250?H 183?H ??BLOOD?UREA?NITROGEN?(mg/dL) 16 11 ??CREATININE?(mg/dL) 0.70 0.80 ??SODIUM?(mmol/L) 143 140 ??POTASSIUM?(mmol/L) 3.9 3.8 ??CHLORIDE?(mmol/L) 109?H 103 ??CrCl?(CandG)?(ml/min) 87.77 76.34 ??AST/SGOT?(Unit/L) 15 17 ??ALT/SGPT?(Unit/L) 12 9?L ??ALKALINE?PHOSPHATASE?(Unit/L) 64 80 ??BILIRUBIN,?TOTAL?(mg/dL) 1.0 1.0 ??PROTEIN?TOTAL?(gm/dl) 6.9 6.8 ??ALBUMIN,?SERUM?(gm/dl) 4.0 4.2 ??GLOBULIN?(gm/dl) 2.9 2.6 ??ALBUMIN/GLOBULIN?RATIO 1.4 1.6 ??CALCIUM,?SERUM?(mg/dL) 9.5 9.5 ??CALCIUM?SERUM?(CORRECTED)?(mg/dL) 9.5 9.5 ??CEA?(O*)?(ng/ml) ? 2.2 ASSESSMENT/PLAN:?Vivian Chavez Assessment/Plan? 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 Patient had complete bowel obstruction prior to the surgery due to malignancy in the descending colon. Patient completed 12 cycle sof treatment with 5 fu 07/09/2024 Pet scan is concerning for lesion in the colon and is planned for colonoscopy . Felton Hernandez, a cancer survivor, presents for follow-up after recent cancer treatment, with ongoing recovery and pending colonoscopy to investigate PET scan findings. Cancer survivorship Assessment: Patient is in recovery following cancer treatment completed on July 02, 2024. A colon cancer test from August 04, 2024, showed no evidence of cancer. However, a recent PET scan in July revealed a small area of hypermetabolic activity, necessitating further investigation. Recovery is expect ed to continue for approximately 3 more months. Hemoglobin is low at 12.8, potentially related to recent cancer treatment. Plan: - Colonoscopy scheduled for Monday to confirm negative colon cancer test results and investigate PET scan findings - Order vitamin tests to check for deficiencies - Follow up in 2 months to discuss colonoscopy results - Encourage cancer prevention strategies: - Recommend increased intake of vegetables (e.g., cucumbers, perez peppers) - Advise avoiding pickles and processed sweets - Suggest choosing fruits over processed sweets Dehydration Assessment: Patient presents with an elevated heart rate, indicative of dehydration. Plan: - Recommend drinking a glass of water upon waking Anemia Assessment: Patient's hemoglobin is low at 12.8, suggesting mild anemia. This may be related to recent cancer treatment. Plan: - Monitor hemoglobin levels - Vitamin tests ordered to check for potential deficiencies contributing to anemia Weight management Assessment: Patient is gaining weight, which may lead to increased blood pressure. Plan: - Monitor blood pressure during follow-up visits - Encourage healthy dietary choices and regular exercise as part of cancer survivorship care ORDERS: Order # Description [id number] MD Follow Up 2 Months + CA 15-3 + Comprehensive Metabolic Panel - 12 + CBC with Auto Diff [id number] Ferritin + Iron Panel + Vitamin B-12 + Folic Acid; Serum + Lactate Dehydrogenase (LDH) [id number] Testosterone; Total RETURN TO CLINIC: BILLING AND COMPLIANCE: I reviewed external records from providers outside my specialty as summarized above. I spent a total of 50 minutes on this patient?s care on the day of their visit excluding time spent related to any billed procedures. This time includes time spent with the patient as well as time spent documenting in the medical record, reviewing patients records and tests, obtaining history, placing orders, communicating with other healthcare professionals, counseling the patient, family or caregiver, and/or care coordination for the diagnoses above. Electronically Signed by: Dionte Chavez MD T: 10:27 PM CC: PCP: Referring: Shelley More This document was completed utilizing speech recognition software. Grammatical errors, random word insertions, pronoun errors, and incomplete sentences are an occasional consequence of this system due to software limitations, ambient noise, and hardware issues. Any formal questions or concerns about the content, text or information contained within the body of this dictation should be directly addressed to the provider for clarification.
== END 2024-10-07 23:59 | disposition home or self-care (01) ==
LOC: SCTC 10:13
PROVIDERS: PCP Family Medicine; Referring Provider Family Medicine; Visit Provider Internal Medicine Hematology & Oncology
DX: Z08 Encounter for follow-up examination after completed treatment for malignant neoplasm (principal); Z85.038 Personal history of other malignant neoplasm of large intestine; Z90.49 Acquired absence of other specified parts of digestive tract; R93.89 Abnormal findings on diagnostic imaging of other specified body structures; Z92.21 Personal history of antineoplastic chemotherapy; E86.0 Dehydration; D64.9 Anemia, unspecified
CPT/HCPCS: 36591; 80053; 82378; 85025; 99212; A4216; J1642; G0463

== ENCOUNTER 2024-09-18 13:05 | Day surgery (SDC) | payer MEDICARE, SELFPAY ==
[2024-09-17 15:40] VITALS: BMI 23.1
[2024-09-18] VITALS (9 sets, daily range): BP systolic 86–154; BP diastolic 62–88; PULSE 72–96; RESP 12–20; TEMP 36.3–36.7; O2SAT 98–100; BMI 22.1
[2024-09-18] MEDS: MIDAZOLAM INJ 1 MG/ML VIAL 2 ML (ASD USE ONLY) 2 MG IVP (14:59)
[2024-09-18] MEDS: fentaNYL CIT INJ 50 mCg/ML AMP 2ML (ASD USE ONLY) IVP (14:59)
[2024-09-18] MEDS: RINGERS LACTATED 1000 ML 1,000 ML 100 ML IV (14:59)
== END 2024-09-18 16:05 | disposition home or self-care (01) ==
PROVIDERS: PCP Family Medicine; Referring Provider Surgery; Visit Provider Surgery
PROC: 0DBE8ZX Excision of Large Intestine, Via Natural or Artificial Opening Endoscopic, Diagnostic (ICD-10-PCS; CPT 45380; principal; 2024-09-18 14:30)
DX: Z12.11 Encounter for screening for malignant neoplasm of colon (principal)
CPT/HCPCS: G0121; A4217; J2250; J3010; J7120

== ENCOUNTER 2024-11-25 10:18 | Outpatient (RCR) | payer MEDICARE, SELFPAY ==
[2024-11-13 11:28] LABS: Basophils # (Auto) 0.0 Thou/mm3 (0.0-0.2); Basophils % (Auto) 1 % (0-2.5); Eosinophils # (Auto) 0.1 Thou/mm3 (0.0-0.5); Eosinophils % (Auto) 2 % (0-10); Hematocrit 34.1 % (41.0-53.0); Hemoglobin 12.2 g/dL (13.5-16.0); Immature Granulocytes Auto 0.01 Thou/mm3 (0.00-0.00); Lymphocytes # (Auto) 1.3 Thou/mm3 (1.0-4.8); Lymphocytes % (Auto) 23 % (10-50); Mean Corpuscular HGB Conc 35.8 g/dl (31.0-37.0); Mean Corpuscular Hemoglobin 31.1 pg (25.0-35.0); Mean Corpuscular Volume 87 fL (80-100); Monocytes # (Auto) 0.4 Thou/mm3 (0.0-0.8); Monocytes % (Auto) 7 % (0-12); Neutrophils # (Auto) 3.7 Thou/mm3 (1.8-7.7); Neutrophils % (Auto) 67 % (37-80); Nucleated Red Blood Cell # 0.00 Thou/mm3 (0.00-0.00); Nucleated Red Blood Cell % 0 /100 WBC (0); Platelet Count 181 Thou/mm3 (140-440); RDW Standard Deviation 43.3 fL (35.1-43.9); Red Blood Count 3.92 Miln/mm3 (4.50-5.90); White Blood Count 5.4 Thou/mm3 (3.8-10.6)
[2024-11-13 11:48] LABS: Carcinoembryonic Antigen 1.5 ng/mL (0.0-5.0); Ferritin 70 ng/mL (10.5-307.3); Iron 74 mcg/dL (65-175); Percent Iron Saturation 28 % (20-55); Total Iron Binding Capacity 259 mcg/dL (250-425); Unsaturated Iron Binding 185 (225-295)
[2024-11-13 11:49] LABS: Folate 19.94 ng/mL (>5.38); Vitamin B12 703 pg/mL (211-911)
[2024-11-13 11:54] LABS: Alanine Aminotransferase 7 U/L (10-49); Albumin, Serum 4.1 gm/dL (3.4-4.8); Albumin/Globulin Ratio 1.5 (1.2-2.2); Alkaline Phosphatase 62 U/L (46-116); Anion Gap 9 (7-16); Aspartate Amino Transferase 15 U/L (0-34); BUN/Creatinine Ratio 14 Ratio (12-20); Bilirubin,Total 0.9 mg/dL (0.3-1.2); Blood Urea Nitrogen 11 mg/dL (9-23); Calcium 9.0 mg/dL (8.3-10.6); Calcium (Corrected) 9.0 mg/dL (8.5-10.1); Carbon Dioxide 25.7 mMol/L (20.0-31.0); Chloride 108 mMol/L (98-107); Creatinine (Component) 0.8 mg/dL (0.6-1.3); Globulin 2.7 gm/dL (2.3-3.5); Glucose 144 mg/dL (74-106); LDH (Lactate Dehydrogenase) 172 U/L (120-246); Osmolality,Calculated 287 (275-295); Potassium 3.8 mMol/L (3.4-5.1); Sodium 143 mMol/L (136-145); Total Protein 6.8 gm/dL (5.7-8.2); eGFR > 60 See Note
[2024-11-19 07:42] LABS: Testosterone,Tot (Adult Male)* 572 ng/dL (250-827)
--- NOTE | 2024-11-25 15:24 | CTCFLWUP_ITS ---
Patient: MERRITT YA : 1955 Page 5 of 7 FOLLOW UP NOTE DATE OF SERVICE: 11/25/2024 NAME: MERRITT YA ACCOUNT: [id number] : 1955 AGE: 69 INTERVAL HISTORY: Patient is here for follow-up on his history of colon cancer. No concerning signs and symptoms. Patient here to discuss results of his recent labs Objective: Vital Signs - Heart Rate: Elevated (exact value not provided) - Hemoglobin: 12.8 (units not specified) Laboratory, Imaging, and Diagnostic Test Results - Colon cancer test (08/04/2024): Negative for cancer - PET scan (July 2024): Small area of hypermetabolic activity detected - Hemoglobin: 12.8 g/dL (low) ONCOLOGY HISTORY:?[facility] Hx? 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 Patient had complete bowel obstruction prior to the surgery due to malignancy in the descending colon. Currently on adjuvant 5-FU and leucovorin chemotherapy (12/06/2023??) Hypotension currently on ProAmatine. History of glaucoma. 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 Patient had complete bowel obstruction prior to the surgery due to malignancy in the descending colon. TREATMENT HISTORY: Care?Plan Start?Date Cycle Day Intent simplified?Bi?wkly?infusional?5?FU?and?Leucovorin 12/06/2023 1 14 Curative?(adjuvant) HISTORY OF PRESENT ILLNESS: Merritt Ya is a 69-year-old ENG speaking male with history of glaucoma, type 2 diabetes, constipation of 1 year duration as well as 50 pound weight loss has the following oncology history. 10/11/2023: Mr. Ya was seen in the [facility] emergency room because of hypotension and anemia. EKG showed left bundle branch block. CEA 3.3. 10/11/2023: CT scan of the chest abdomen and pelvis with IV contrast was obtained 10/12/2023: Mr. Ya had a colonoscopy 10/14/2023: Mr. Ya had laparoscopic cholecystectomy, exploratory laparotomy and resection of the descending colon and anastomosis between the transverse colon to the sigmoid colon and resection of the small bowel and primary anastomosis. 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 Tobacco Use:?Smoked cigars socially off/on x 2 yrs - Quit 40yrs ago ETOH Use:?Quit Apr 2023- Drank 3- 24 oz beers/daily for 40yrs Drug?Note:?Denies Social History Note:?Lives with and children FINISH INSPECTOR HISTORY: MEDICATIONS: 1. Jardiance - 50 mg Daily?Palabra Meds? Medications Last Reconciled by Mabel Morales MA on 11/25/2024 ALLERGIES: No Known Allergies; No Known Drug Allergies REVIEW OF SYSTEMS: A complete 14-point review of systems was performed and is negative except as noted in interval history. PHYSICAL EXAMINATION:?[facility] PE? VITAL SIGNS: Temperature?99, B/P?122/76, Oxygen?Saturation?100% Weight?136?lbs (Change?since?11/13/24:?2.4?lbs) PAIN: 0 - No pain ECOG Performance Status: 0 - Asymptomatic and fully active Alert and oriented x4 CHEST: Clear to auscultation. No wheezes or rales audible. CARDIAC: Rhythm regular, no murmurs or gallops present. ABDOMEN: Soft. No hepatomegaly. No splenomegaly. EXTREMITIES: No pedal edema or cyanosis. LABORATORY DATA: I have personally reviewed and interpreted each of the patient?s relevant lab tests, abnormal findings are below: Date 8/6/25 ??WHITE?BLOOD?COUNT?(Thou/mm3) 5.4 ??RED?BLOOD?COUNT?(Miln/mm3) 3.92?L ??HEMOGLOBIN?(gm/dl) 12.2?L ??HEMATOCRIT?(%) 34.1?L ??PLATELET?COUNT?(Thou/mm3) 181 ??NEUTROPHILS?%,?AUTO?(%) 67 ??LYMPH?%,?AUTO?(%) 23 ??NEUTROPHILS,?AUTO?(Thou/mm3) 3.7 ??GLUCOSE,RANDOM?(mg/dL) 144?H ??BLOOD?UREA?NITROGEN?(mg/dL) 11 ??CREATININE?(mg/dL) 0.80 ??SODIUM?(mmol/L) 143 ??POTASSIUM?(mmol/L) 3.8 ??CHLORIDE?(mmol/L) 108?H ??CrCl?(CandG)?(ml/min) 76.80 ??AST/SGOT?(Unit/L) 15 ??ALT/SGPT?(Unit/L) 7?L ??ALKALINE?PHOSPHATASE?(Unit/L) 62 ??BILIRUBIN,?TOTAL?(mg/dL) 0.9 ??PROTEIN?TOTAL?(gm/dl) 6.8 ??ALBUMIN,?SERUM?(gm/dl) 4.1 ??GLOBULIN?(gm/dl) 2.7 ??ALBUMIN/GLOBULIN?RATIO 1.5 ??CALCIUM,?SERUM?(mg/dL) 9.0 ??CALCIUM?SERUM?(CORRECTED)?(mg/dL) 9.0 ??CEA?(O*)?(ng/ml) 1.5 ??TOTAL?IRON?BINDING?CAP?(S*)?(mcg/dL) 259 ??UNBOUND?IBC?(mcg/dL) 185?L ASSESSMENT/PLAN:?Vivian Chvaez Assessment/Plan? 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 Patient had complete bowel obstruction prior to the surgery due to malignancy in the descending colon. Patient completed 12 cycle sof treatment with 5 fu 07/09/2024 Pet scan is concerning for lesion in the colon and is planned for colonoscopy . Colonoscopy was negative for cancer. 10/25/2024 colonoscopy is negative Cancer survivorship Assessment: Patient is in recovery following cancer treatment completed on July 02, 2024. A colon cancer test from August 04, 2024, showed no evidence of cancer. However, a recent PET scan in July revealed a small area of hypermetabolic activity, necessitating further investigation colonoscopy is nega tive Advised to continue taking plant-based diet Dehydration Assessment: Patient presents with an elevated heart rate, indicative of dehydration. Plan: - Recommend drinking a glass of water upon waking Anemia Assessment: Patient's hemoglobin is low at 12.8, suggesting mild anemia. This may be related to recent cancer treatment. Plan: - Monitor hemoglobin levels - Vitamin tests ordered to check for potential deficiencies contributing to anemia Weight management Assessment: Patient is gaining weight, which may lead to increased blood pressure. Plan: - Monitor blood pressure during follow-up visits - Encourage healthy dietary choices and regular exercise as part of cancer survivorship care Will do CT scan in 6 months along with labs ORDERS: Order # Description [id number] Comprehensive Metabolic Panel - 12 + CBC with Auto Diff + CEA + MD Follow Up 6 Month [id number] Iron Panel + Ferritin + Vitamin B-12 + Folic Acid; Serum 6 months RETURN TO CLINIC: I reviewed the diagnosis, prognosis, and recommended treatment/procedure options with the patient (and/or their legal small business sales representative), including the potential benefits, risks, side effects and alternative therapies. We also discussed the option of no treatment and the possibility of clinical trial participation, if applicable. All questions were addressed, and they demonstrated understanding. They provided informed consent to proceed with the proposed plan of care. BILLING AND COMPLIANCE: I reviewed external records from providers outside my specialty as summarized above. I spent a total of 50 minutes on this patient?s care on the day of their visit excluding time spent related to any billed procedures. This time includes time spent with the patient as well as time spent documenting in the medical record, reviewing patients records and tests, obtaining history, placing orders, communicating with other healthcare professionals, counseling the patient, family or caregiver, and/or care coordination for the diagnoses above. Electronically Signed by: Dionte Chavez MD T: 3:22 PM CC: PCP: Referring: Shelley More This document was completed utilizing speech recognition software. Grammatical errors, random word insertions, pronoun errors, and incomplete sentences are an occasional consequence of this system due to software limitations, ambient noise, and hardware issues. Any formal questions or concerns about the content, text or information contained within the body of this dictation should be directly addressed to the provider for clarification.
== END 2024-12-08 23:59 | disposition home or self-care (01) ==
LOC: SCTC 10:18
PROVIDERS: PCP Family Medicine; Referring Provider Family Medicine; Visit Provider Internal Medicine Hematology & Oncology
DX: Z08 Encounter for follow-up examination after completed treatment for malignant neoplasm (principal); Z85.038 Personal history of other malignant neoplasm of large intestine; Z92.21 Personal history of antineoplastic chemotherapy; D64.9 Anemia, unspecified; E86.0 Dehydration
CPT/HCPCS: 36591; 80053; 82378; 82607; 82728; 82746; 83540; 83550; 83615; 84403; 85025; 99212; A4216; J1642; G0463